=== PATIENT | male | born 1955 | race Caucasian/White ===

== ENCOUNTER → 2016-11-17 | Outpatient (CLI) | payer OTHER | END | disposition home or self-care (01) | LOC: PCVCIMAG 12:45 | PROVIDERS: ATTEND Nuclear Medicine Nuclear Cardiology | DX: I70.211 Atherosclerosis of native arteries of extremities with intermittent claudication, right leg (principal); Z95.820 Peripheral vascular angioplasty status with implants and grafts | CPT/HCPCS: 93926 ==

== ENCOUNTER → 2017-04-25 | Outpatient (CLI) | payer OTHER ==
--- NOTE | 2017-04-25 10:28 | PCVCIMAG ---
EXAM: BILATERAL CAROTID DUPLEX INDICATION: Carotid Occlusive Disease. FINDINGS: Doppler Measurements (centimeters per second): RIGHT: Peak CCA-64, Peak ECA-228, Diastolic ICA-44, Peak ICA-123, ICA/CCA Ratio-1.9. LEFT: Peak CCA-101, Peak ECA-104, Diastolic ICA-46, Peak ICA-110, ICA/CCA Ratio-1.1. RIGHT CAROTID: The carotid bulb has moderate plaque. The proximal internal carotid artery shows 40-50% stenosis. The common carotid artery shows no significant stenosis. The external carotid artery shows 70% stenosis. LEFT CAROTID: The carotid bulb has mild plaque. The proximal internal carotid artery shows <40% stenosis. The common carotid artery shows no significant stenosis. The external carotid artery shows no significant stenosis. Antegrade flow in both vertebral arteries. IMPRESSION: 40-50% stenosis of the right internal carotid artery with moderate plaque. <40% stenosis of the left internal carotid artery with mild plaque. LOC:[place] [id number]
--- NOTE | 2017-04-25 18:36 | PCVCIMAG ---
EXAM: BILATERAL LOWER EXTREMITY ARTERIAL DUPLEX INDICATION: Peripheral Arterial Disease. Leg pain. FINDINGS: Right Leg: Satisfactory arterial waveforms in the common femoral and profunda femoral artery. Mild/moderate velocity elevation mid [place] superficial femoral artery of 264 cm/s consistent with 50% stenosis not felt to be critically flow-limiting. Previous stent distal superficial femoral artery is widely patent. The popliteal artery is patent. Three-vessel runoff into the foot. Left Leg: Satisfactory arterial waveforms throughout the common/profunda/superficial femoral, popliteal, anterior tibial, peroneal, and posterior tibial arteries. No flow limiting stenosis seen. IMPRESSION: Previous distal right superficial femoral artery stent is maintaining good patency. 50% stenosis mid [place] right superficial femoral artery not felt to be flow-limiting. No flow limiting stenosis in the left lower extremity. LOC:[id number]
== END | disposition home or self-care (01) ==
LOC: PCVCIMAG 07:51
PROVIDERS: ATTEND Internal Medicine Cardiovascular Disease
DX: I65.23 Occlusion and stenosis of bilateral carotid arteries (principal); I25.10 Atherosclerotic heart disease of native coronary artery without angina pectoris; E78.00 Pure hypercholesterolemia, unspecified; I70.201 Unspecified atherosclerosis of native arteries of extremities, right leg; F17.210 Nicotine dependence, cigarettes, uncomplicated; Z88.1 Allergy status to other antibiotic agents; Z88.2 Allergy status to sulfonamides; Z95.828 Presence of other vascular implants and grafts
CPT/HCPCS: 93880; 93925; G0463

== ENCOUNTER → 2017-07-04 | Outpatient (CLI) | payer OTHER ==
--- NOTE | 2017-07-04 12:30 | PCVCIMAG ---
APPROVED REPORT Study performed: 07/04/2017 11:25:16 EXAM: Comprehensive 2D, Doppler, and color-flow Echocardiogram Patient Location: Echo lab Room #: 2Status: routine BSA: 2.07 HR: 74 bpmBP: 124/72 mmHg Rhythm: NSR Risk Factors: Cardiac Risk Factors: HTN, Smoking,PAD Indications Chest Pressure Dyspnea CAD Hypertension/HDD 2D Dimensions LVEF(%): 56.45 (>50%) IVSd: 7.79 (7-11mm)LVOT Diam: 22.79 (18-24mm) LVDd: 48.53 mm PWd: 6.56 (7-11mm)Ascending Ao: 32.01 (22-36mm) LVDs: 34.18 (25-40mm) Left Atrium: 28.54 (27-40mm) Aortic Root: 22.70 mm LV Single Plane 4CH: 48.37 % LV Single Plane 2CH: 58.46 %Schroeder's LVEF: 53.42 % Biplane EF: 54.8 % Volumes Left Atrial Volume (Systole) Single Plane 4CH: 45.17 mLSingle Plane 2CH: 71.27 mL Biplane LA Volume: 57.00 mLLA ESV Index: 28.00 mL/m2 Aortic Valve AoV Peak Hitesh.: 1.24 m/s AO Peak Gr.: 6.14 mmHgLVOT Max P.68 mmHg LVOT Max V: 0.82 m/s KYAW Vmax: 2.69 cm2 Mitral Valve E/A Ratio: 0.6 MV Decel. Time: 142.35 ms MV E Max Hitesh.: 0.43 m/s MV A Hitesh.: 0.76 m/s IVRT: 128.03 ms TDI E/Lateral E': 6.14E/Medial E': 6.14 Medial E' Hitesh.: 0.07 m/s Lateral E' Hitesh.: 0.07 m/s Pulmonary Valve PV Peak Hitesh.: 1.09 m/sPV Peak Gr.: 4.79 mmHg Pulmonary Vein P Vein S: 0.65 m/sP Vein A: 0.72 m/s P Vein D: 0.37 m/sP Vein A Dur.: 110.7 msec P Vein S/D Ratio: 1.76 Tricuspid Valve TR Peak Hitesh.: 1.22 m/s TR Peak Gr.: 5.97 mmHg TV Vmax: 0.39 m/sPA Pressure: 13.00 mmHg Left Ventricle The left ventricle is normal size. There is normal LV segmental wall motion. There is normal left ventricular wall thickness. Left ventricular systolic function is normal. The left ventricular ejection fraction is within the normal range. LVEF is 55%. Grade I - abnormal relaxation pattern. Right Ventricle The right ventricle is normal size. The right ventricular systolic function is normal. Atria The left atrium size is normal. The right atrium size is normal. Aortic Valve Aortic valve is trileaflet. Mild aortic valve sclerosis. Aortic valve leaflets are sclerotic but open well. No aortic regurgitation is present. There is no aortic valvular stenosis. Mitral Valve The mitral valve is normal in structure. Trace mitral regurgitation. No evidence of mitral valve stenosis. Tricuspid Valve The tricuspid valve is normal in structure. Mild tricuspid regurgitation. No pulmonary hypertension. Pulmonic Valve The pulmonary valve is normal in structure. There is no pulmonic valvular regurgitation. Great Vessels The aortic root is normal in size. The ascending aorta is normal in size. IVC is normal in size and collapses with >50% inspiration Pericardium There is no pericardial effusion. There is no pleural effusion. <Conclusion> The left ventricle is normal size. There is normal left ventricular wall thickness. LVEF is 55%. Grade I - abnormal relaxation pattern. The right ventricle is normal size. The left atrium size is normal. Aortic valve is trileaflet. Mild aortic valve sclerosis. Aortic valve leaflets are sclerotic but open well. There is no aortic valvular stenosis. Trace mitral regurgitation. Mild tricuspid regurgitation. No pulmonary hypertension. There is no pericardial effusion.
== END | disposition home or self-care (01) ==
LOC: PCVCIMAG 10:37
PROVIDERS: ATTEND Internal Medicine Cardiovascular Disease
DX: I07.1 Rheumatic tricuspid insufficiency (principal); I25.10 Atherosclerotic heart disease of native coronary artery without angina pectoris; I73.9 Peripheral vascular disease, unspecified; R07.89 Other chest pain; R06.02 Shortness of breath; I10 Essential (primary) hypertension
CPT/HCPCS: 93005; 93306

== ENCOUNTER → 2017-07-11 | Outpatient (CLI) | payer OTHER ==
[~2017-07-11] MED LIST: REGADENOSON 0.4 MG/5 ML DISP.SYRIN. IV ONE
--- NOTE | 2017-07-11 19:23 | PCVCIMAG ---
APPROVED REPORT Exam: Nuclear Stress Test Indication: CAD , Chest pain, Dyspnea Patient Location: Out-Patient Stress Nurse: Michelle Christian RN, Jacqui Martinez RN MS Tech:Ivonne AcunahbunJANINAMT Ht: 6 ft 4 in Wt: 170 lbs BSA: 2.07 m2 HR: 88 bpm BP: 126/68 mmHg BMI: 20.6 Rhythm: SR Medical History Medical History: Hyperlipidemia, Age, CVD, PVD, CAD Medications: Crestor Allergies: Sulfa, Amocxicellin Pretest Chest Pain Characteristics: No chest pain Exercise History: Physically active Physical Disabilities: Balance issues NM EXAM: Myocardial Perfusion REST/STRESS Imaging Protocol: Rest Tc-99m/Stress Tc-99m 1 day Resting Data Rest SPECT myocardial perfusion imaging was performed in supine position 45 minutes following the intravenous injection of 8.1 mCi of Tc-99m Sestamibi. Time of rest injection: 0800 Date: 07/11/2017 Administration Route: IV Administration Site: Right AC Pharmacologic Stress Pharmacologic stress test was performed by injecting Regadenoson 0.4 mg IV push followed by the intravenous injection of 24.6 mCi of Tc-99m Sestamibi. Time of stress injection: 0930 Date: 07/11/2017 Administration Route: IV Administration Site: Right AC Gated Stress SPECT was performed 45 minutes after stress injection. The images were gated to evaluate regional wall motion and calculate left ventricular ejection fraction. Study Quality Study: Good Study Data Post stress, the left ventricular ejection was 71%.. SSS: 0 SRS: 3 SDS: 0 TID = 0.94. Perfusion No evidence of stress induced ischemia or prior myocardial infarction. Wall Motion Normal left ventricular size and function with no regional wall motion abnormalities. Nuclear Conclusion No evidence of stress induced ischemia or prior myocardial infarction. Normal left ventricular size and function with no regional wall motion abnormalities. Post stress, the left ventricular ejection was 71%.. No prior study available for comparison. Interpreted by: Crispin Valentin MD Electronically Approved: 07/11/2017 15:00:30 Stress Test Details Stress Test: Pharmacologic stress was paired with low level exercise. Reason for pharmacologic stress test: physical limitation, unsteady with balance issues. HR Resting HR: 88 bpmMax Heart Rate (APMHR): 157 bpm Max HR Achieved: 134 bpmTarget HR (85% APMHR): 133 bpm % of APMHR: 85 Recovery HR: 95 bpm BP Resting BP: 126/68 mmHg Max BP: 110/86 mmHg ECG Resting ECG: Sinus Rhythm Stress ECG: Sinus Tachycardia Recovery ECG: Sinus Rhythm Clinical Reason for Termination: Completed protocol Stress Symptoms: Dyspnea Exercise duration: 4 min 00 sec Exercise capacity: 1.6 METs Symptoms resolved during recovery. Stress ECG Conclusion ECG: Non-ischemic Clinical: Non-ischemic <Conclusion> ECG: Non-ischemic Clinical: Non-ischemic
== END | disposition home or self-care (01) ==
LOC: PCVCIMAG 07:27
PROVIDERS: ATTEND Internal Medicine Cardiovascular Disease
DX: I25.10 Atherosclerotic heart disease of native coronary artery without angina pectoris (principal); R07.9 Chest pain, unspecified; R06.00 Dyspnea, unspecified; E78.5 Hyperlipidemia, unspecified
CPT/HCPCS: 78452; 93017; A9500; J2785

== ENCOUNTER → 2018-04-25 | Outpatient (CLI) | payer OTHER ==
--- NOTE | 2018-04-25 15:38 | PCVCIMAG ---
EXAM: BILATERAL CAROTID DUPLEX INDICATION: Carotid Occlusive Disease. FINDINGS: Doppler Measurements (centimeters per second): RIGHT: Peak CCA-90, Peak ECA-225, Diastolic ICA-32, Peak ICA-103, ICA/CCA Ratio-1.1. LEFT: Peak CCA-98, Peak ECA-102, Diastolic ICA-32, Peak ICA-89, ICA/CCA Ratio-0.9. RIGHT CAROTID: The carotid bulb has moderate plaque. The proximal internal carotid artery shows <40% stenosis. The common carotid artery shows no significant stenosis. The external carotid artery shows 70% stenosis. LEFT CAROTID: The carotid bulb has moderate plaque. The proximal internal carotid artery shows <40% stenosis. The common carotid artery shows no significant stenosis. The external carotid artery shows no significant stenosis. Antegrade flow in both vertebral arteries. IMPRESSION: <40% stenosis of the right internal carotid artery with moderate plaque. <40% stenosis of the left internal carotid artery with moderate plaque. LOC:[place] [id number]
--- NOTE | 2018-04-25 15:41 | PCVCIMAG ---
EXAM: BILATERAL LOWER EXTREMITY ARTERIAL DUPLEX INDICATION: Peripheral Arterial Disease. Leg pain. FINDINGS: Right Leg: Common femoral and profunda femoral arteries are patent. Mild velocity elevation mid [employer] [place] [place] superficial femoral artery of 229 cm/s consistent with 40-50% stenosis not felt be flow-limiting. Previous stent distal superficial femoral artery maintaining good patency. Popliteal artery is patent. The anterior tibial, peroneal, and posterior tibial arteries are patent. Left Leg: Satisfactory arterial waveforms throughout the common/profunda/superficial femoral, popliteal, anterior tibial, peroneal, and posterior tibial arteries. No flow limiting stenosis seen. IMPRESSION: 40-50% stenosis mid [employer] [place] right superficial femoral artery. Previous stent distal right superficial femoral artery maintaining good patency. No flow-limiting stenosis in the left lower extremity. LOC:[id number]
== END | disposition home or self-care (01) ==
LOC: PCVCIMAG 16:43
PROVIDERS: ATTEND Nuclear Medicine Nuclear Cardiology
DX: I73.9 Peripheral vascular disease, unspecified (principal); I10 Essential (primary) hypertension; I65.23 Occlusion and stenosis of bilateral carotid arteries; F17.200 Nicotine dependence, unspecified, uncomplicated
CPT/HCPCS: 93880; 93925

== ENCOUNTER → 2018-06-24 | Outpatient (CLI) | payer OTHER ==
--- NOTE | 2018-06-24 16:57 | PCVCIMAG ---
EXAM: VENOUS DUPLEX RIGHT LOWER EXTREMITY INDICATION: Leg pain and swelling. FINDINGS: Right leg: No thrombus in the common femoral, main femoral, or popliteal veins. These veins are compressible with phasic flow. Calf veins are unremarkable where seen. IMPRESSION: No evidence of deep venous thrombosis in in the right lower extremity as detailed above. Incidental note is made of a 1.3 x 1.6 x 1.9 cm right popliteal cyst. LOC:[id number]
== END | disposition home or self-care (01) ==
LOC: PCVCIMAG 14:33
PROVIDERS: ATTEND Nuclear Medicine Nuclear Cardiology
DX: M79.661 Pain in right lower leg (principal); H57.89 Other specified disorders of eye and adnexa; M79.89 Other specified soft tissue disorders
CPT/HCPCS: 93971

== ENCOUNTER → 2018-12-04 | Outpatient (CLI) | payer OTHER ==
--- NOTE | 2018-12-04 12:36 | PCVCIMAG ---
EXAM: BILATERAL LOWER EXTREMITY ARTERIAL DUPLEX INDICATION: Peripheral Arterial Disease. Leg pain. FINDINGS: Right Leg: Satisfactory arterial waveforms throughout the common/profunda/superficial femoral, popliteal, anterior tibial, peroneal, and posterior tibial arteries. No flow limiting stenosis seen. Left Leg: Satisfactory arterial waveforms throughout the common/profunda/superficial femoral, popliteal, anterior tibial, peroneal, and posterior tibial arteries. No flow limiting stenosis seen. IMPRESSION: No flow limiting stenosis in the right lower extremity. Previous stent distal right superficial femoral artery maintaining satisfactory patency. No flow limiting stenosis in the left lower extremity. LOC:[id number]
== END | disposition home or self-care (01) ==
LOC: PCVCIMAG 09:24
PROVIDERS: ATTEND Internal Medicine Cardiovascular Disease
DX: I73.9 Peripheral vascular disease, unspecified (principal); I25.10 Atherosclerotic heart disease of native coronary artery without angina pectoris; E78.00 Pure hypercholesterolemia, unspecified; I65.23 Occlusion and stenosis of bilateral carotid arteries; Z72.0 Tobacco use
CPT/HCPCS: 93925

== ENCOUNTER → 2019-07-10 | Outpatient (CLI) | payer OTHER ==
--- NOTE | 2019-07-10 16:52 | PCVCIMAG ---
APPROVED REPORT Imaging Protocol: Rest Tc-99m/Stress Tc-99m 1 day Study performed: 07/10/2019 08:17:48 Indication: Dyspnea, Chest pain, CAD Patient Location: Out-Patient Stress Nurse: Michelle Christian RN, Jacqui Martinez RN MT Tech:Ivonne Acunamarina [facility] Ht: 6 ft 4 in Wt: 165 lbs BSA: 2.04 m2 HR: 69 bpm BP: 158/71 mmHg BMI: 20.0 Medical History Medical History: Hyperlipidemia, PVD, CVD, Current Smoker Medications: Zetia, Crestor Allergies: None relevant to this exam. Cardiac Risk Factors: Age Pretest Chest Pain Characteristics: No chest pain Resting Data Rest SPECT myocardial perfusion imaging was performed in supine position 45 minutes following the intravenous injection of 9.8 mCi of Tc-99m Sestamibi. Time of rest injection: 809 Administration Route: IV Administration Site: Right Hand Pharmacologic Stress Pharmacologic stress test was performed by injecting Regadenoson 0.4 mg IV push over 10-15 seconds immediately followed by the intravenous injection of 33.3 mCi of Tc-99m Sestamibi. Time of stress injection: 914 Date: 07/10/2019 Administration Route: IV Administration Site: Right Hand Gated Stress SPECT was performed 45 minutes after stress injection. The images were gated to evaluate regional wall motion and calculate left ventricular ejection fraction. Stress Test Details Stress Test: Pharmacologic stress testing performed using 0.4 mg of regadenoson per 5 mL given IV over 10 seconds. Reason for pharmacologic stress test: physical limitation, neuropathy. Atropine may be administered at 0.5mg increments (to a maximum of 2mg) to achieve the designated target heart rate, mg was utilized. HRMax Heart Rate (APMHR): 155 bpm Resting HR: 69 bpmTarget HR (85% APMHR): 131 bpm Max HR Achieved: 100 bpm % of APMHR: 64 Recovery HR: 91 bpm BP Resting BP: 158/71 mmHg Max BP: 148/67 mmHg Recovery BP: 135/62 mmHg ECG Resting ECG: Sinus Rhythm Stress ECG: Sinus Tachycardia Arrhythmia: None Recovery ECG: Sinus Rhythm Clinical Reason for Termination: Completed protocol Stress Symptoms: Abdominal discomfort, Head pressure Symptoms resolved with caffeine. Stress ECG Conclusion ECG: Non-ischemic Study Quality Study: Good Study Data Post stress, the left ventricular ejection was 61%.. SSS: 5 SRS: 5 SDS: 2 TID = 1.02. Perfusion No evidence of stress induced ischemia or prior myocardial infarction. Wall Motion Normal left ventricular size and function with no regional wall motion abnormalities. Nuclear Conclusion No evidence of stress induced ischemia or prior myocardial infarction. Normal left ventricular size and function with no regional wall motion abnormalities. Post stress, the left ventricular ejection was 61%. No change since prior study dated July 2017. Interpreted by: Crispin Valentin MD Electronically Approved: 07/10/2019 16:03:41 <Conclusion> ECG: Non-ischemic
== END | disposition home or self-care (01) ==
LOC: PCVCIMAG 08:14
PROVIDERS: ATTEND Internal Medicine Cardiovascular Disease
DX: I25.10 Atherosclerotic heart disease of native coronary artery without angina pectoris (principal); I73.9 Peripheral vascular disease, unspecified; E78.5 Hyperlipidemia, unspecified; Z86.73 Personal history of transient ischemic attack (TIA), and cerebral infarction without residual deficits; F17.210 Nicotine dependence, cigarettes, uncomplicated; Z96.659 Presence of unspecified artificial knee joint; Z82.49 Family history of ischemic heart disease and other diseases of the circulatory system
CPT/HCPCS: 78452; 93017; A9500; J2785

== ENCOUNTER → 2019-07-14 | Outpatient (CLI) | payer OTHER ==
--- NOTE | 2019-07-14 10:15 | PCVCIMAG ---
EXAM: BILATERAL CAROTID DUPLEX INDICATION: Carotid Occlusive Disease. FINDINGS: Doppler Measurements (centimeters per second): RIGHT: Peak CCA-87, Peak ECA-280, Diastolic ICA-46, Peak ICA-129, ICA/CCA Ratio-1.5. LEFT: Peak CCA-117, Peak ECA-171, Diastolic ICA-40, Peak ICA-116, ICA/CCA Ratio-1.0. RIGHT CAROTID: The carotid bulb has moderate plaque. The proximal internal carotid artery shows 40-50% stenosis. The common carotid artery shows no significant stenosis. The external carotid artery shows 80% stenosis. LEFT CAROTID: The carotid bulb has moderate plaque. The proximal internal carotid artery shows 40% stenosis. The common carotid artery shows no significant stenosis. The external carotid artery shows 60% stenosis. Antegrade flow in both vertebral arteries. IMPRESSION: 40-50% stenosis of the right internal carotid artery with moderate plaque. 40% stenosis of the left internal carotid artery with moderate plaque. Mild progression since April 2018 study. LOC:[id number]
== END | disposition home or self-care (01) ==
LOC: PCVCIMAG 09:05
PROVIDERS: ATTEND Internal Medicine Cardiovascular Disease
DX: I65.23 Occlusion and stenosis of bilateral carotid arteries (principal); I25.10 Atherosclerotic heart disease of native coronary artery without angina pectoris; E78.5 Hyperlipidemia, unspecified; F17.210 Nicotine dependence, cigarettes, uncomplicated; Z88.8 Allergy status to other drugs, medicaments and biological substances; Z72.89 Other problems related to lifestyle
CPT/HCPCS: 93880